=== PATIENT | male | born 1980 ===

== ENCOUNTER 2023-02-06 12:23 | Inpatient (IN) | payer MEDICAID ==
[~2023-02-06] VITALS: Ht 180.3 cm; Wt 108.9 kg
[2023-02-06] MEDS ORDERED: HALOPERIDOL LACTATE 5 MG/ML VIAL IM ONE (12:45)
[2023-02-06] MEDS ORDERED: DiphenhydrAMINE HCL 50 MG/ML VIAL IM ONE (12:45)
[2023-02-06] MEDS ORDERED: LORazepam 2 MG/ML VIAL IM ONE (12:45)
[2023-02-06 12:55] LABS: BASOPHILS % (AUTO) 0.9 % (0.0-2.0); EOSINOPHILS % (AUTO) 0.2 % (1.0-6.0); HEMATOCRIT 46.4 % (41-53); HEMOGLOBIN 15.7 g/dL (13.5-17.5); LYMPHOCYTES # (AUTO) 2.4 K/uL (1.0-4.8); LYMPHOCYTES % (AUTO) 35.5 % (22.0-44.0); MEAN CORPUSCULAR HGB CONC 33.9 G/dL (31.0-37.0); MEAN CORPUSCULAR VOLUME 91 fL (80-100); MONOCYTES # (AUTO) 0.5 K/uL (0.1-1.0); MONOCYTES % (AUTO) 7.4 % (2.0-9.0); NEUTROPHILS # (AUTO) 3.8 K/uL (1.8-7.7); PLATELET COUNT (AUTO) 314 K/uL (150-450); RED BLOOD CELL COUNT(AUTO) 5.08 MIL/uL (4.50-5.90); WHITE BLOOD COUNT (AUTO) 6.8 K/uL (4.5-11.0)
[2023-02-06 13:06] LABS: ANION GAP 10 mmol/L (8-16); CALCIUM, TOTAL 8.8 mg/dL (8.8-10.5); CARBON DIOXIDE 25 mmol/L (22-29); CHLORIDE 107 mmol/L (98-107); CREATININE 0.77 mg/dL (0.60-1.30); GLOMERULAR FILTR. RATE CALC > 60 mL/min (>60); GLUCOSE,RANDOM 134 mg/dL (70-110); POTASSIUM 3.6 mmol/L (3.5-5.1); SODIUM SERUM 142 mmol/L (136-145); UREA NITROGEN, BLOOD 5 mg/dL (7-18)
[2023-02-06 13:12] LABS: ALANINE AMINOTRANSFERASE 38 U/L (12-78); ALKALINE PHOSPHATASE 103 U/L (46-116); ASPARTATE AMINOTRANSFERASE 37 U/L (15-37); BILIRUBIN,TOTAL 0.3 mg/dL (0.1-1.0); TOTAL PROTEIN, SERUM 7.7 g/dL (6.4-8.2)
[2023-02-06 13:31] LABS: ALCOHOL, BLOOD (SERUM) 350 mg/dL (0-10)
[2023-02-06 13:52] LABS: AMPHET/METH SCREEN,URINE NEGATIVE (NEGATIVE); BARBITURATE SCREEN, URINE NEGATIVE (NEGATIVE); BENZODIAZEPINES SCREEN,URINE NEGATIVE (NEGATIVE); CANNABINOID SCREEN,URINE NEGATIVE (NEGATIVE); COCAINE SCREEN,URINE NEGATIVE (NEGATIVE); METHADONE SCREEN, URINE NEGATIVE (NEGATIVE); OPIATE SCREEN,URINE NEGATIVE (NEGATIVE); PHENCYCLIDINE SCREEN,URINE NEGATIVE (NEGATIVE)
[2023-02-06 13:53] LABS: ALCOHOL, URINE DRUG SCREEN POSITIVE (NEGATIVE)
[2023-02-06 18:21] LABS: COVID AG,FIA SOURCE NASAL SWAB
[2023-02-06 19:08] LABS: SARS-COV2 (COVID) ANTIGEN,FIA Negative (Negative)
[2023-02-06] MEDS: HALOPERIDOL 5 MG TABLET PO PRN (19:56)
[2023-02-06] MEDS: ZOLPIDEM TARTRATE 10 MG TABLET PO PRN (19:56)
[2023-02-06] MEDS: LORazepam 2 MG TABLET PO PRN (19:56)
[2023-02-07] VITALS (15 sets, daily range): BP systolic 120–151; BP diastolic 67–91; PULSE 79–103; RESP 16–18; TEMP 97.2–98.5; O2SAT 95–98
[2023-02-07] MEDS: HALOPERIDOL 5 MG TABLET PO PRN ×3 (02:45→13:22)
[2023-02-07] MEDS: LORazepam 2 MG TABLET PO PRN ×5 (02:45→19:42)
[2023-02-07] MEDS ORDERED: ALBUTEROL SULFATE HFA 90 MCG/PUFF 8 GM INHALER IH PRN (07:00)
[2023-02-07] MEDS ORDERED: CloNIDine HCL 0.1 MG TABLET PO PRN (07:00)
[2023-02-07] MEDS ORDERED: LOPERAMIDE HCL 2 MG CAPSULE PO PRN (07:00)
[2023-02-07] MEDS ORDERED: NICOTINE 14 MG/24 HOUR PATCH TD PRN (07:00)
[2023-02-07] MEDS ORDERED: GuaiFENesin/D-METHORPHAN [SUGAR-FREE] 200-20MG/10 ML SYRUP UDCUP PO PRN (07:00)
[2023-02-07] MEDS ORDERED: DOCUSATE SODIUM 100 MG CAPSULE PO PRN (07:00)
[2023-02-07] MEDS ORDERED: MAG HYDROX/ALUMINUM HYD/SIMETH ES 30 ML SUSPENSION UDCUP PO PRN (07:00)
[2023-02-07] MEDS ORDERED: ONDANSETRON HCL 4 MG TABLET PO PRN (07:00)
[2023-02-07] MEDS ORDERED: ACETAMINOPHEN 325 MG TABLET PO PRN (07:00)
[2023-02-07] MEDS ORDERED: PETROLATUM,WHITE 28 GM JELLY TP PRN (07:00)
[2023-02-07] MEDS ORDERED: IBUPROFEN 400 MG TABLET PO PRN (07:00)
[2023-02-07] MEDS ORDERED: MAGNESIUM HYDROXIDE SUSPENSION 30 ML UDCUP PO PRN (07:00)
[2023-02-07] MEDS ORDERED: CYANOCOBALAMIN 1,000 MCG/ML VIAL IM ONE (10:00)
[2023-02-07] MEDS ORDERED: HydrOXYzine PAMOATE 50 MG CAPSULE PO PRN (10:00)
[2023-02-07] MEDS: THIAMINE 100 MG TABLET PO SCH ×2 (10:31→17:13)
[2023-02-07] MEDS: FOLIC ACID 1 MG TABLET PO SCH (10:31)
[2023-02-07] MEDS: MULTIVITAMINS WITH MINERALS, THERAPEUTIC TABLET PO SCH (10:31)
[2023-02-07] MEDS: SERTRALINE HCL 50 MG TABLET PO SCH (10:31)
[2023-02-07] MEDS: ZOLPIDEM TARTRATE 10 MG TABLET PO PRN (20:21)
[2023-02-08] MEDS: LORazepam 2 MG TABLET PO PRN (04:24)
[2023-02-08] MEDS ORDERED: LORazepam 2 MG TABLET PO PRN (07:00)
[2023-02-08] MEDS: SERTRALINE HCL 50 MG TABLET PO SCH (08:01)
[2023-02-08] MEDS: MULTIVITAMINS WITH MINERALS, THERAPEUTIC TABLET PO SCH (08:01)
[2023-02-08] MEDS: THIAMINE 100 MG TABLET PO SCH ×2 (08:01→17:13)
[2023-02-08] MEDS: FOLIC ACID 1 MG TABLET PO SCH (08:01)
[2023-02-08] MEDS: LORazepam 2 MG TABLET PO SCH ×4 (08:01→21:14)
[2023-02-08 08:07] LABS: HEMOGLOBIN A1C 5.1 % (3.8-5.6)
[2023-02-08 08:17] LABS: CHOL/HDL RATIO 2.1 (4.2-7.3); THYROID STIMULATING HORMONE 0.97 uIU/mL (0.36-3.74)
[2023-02-08 09:15] VITALS: BP 142/95; PULSE 96; RESP 18; TEMP 97.7; O2SAT 96
[2023-02-08] MEDS: HALOPERIDOL 5 MG TABLET PO PRN ×2 (17:13→21:13)
[2023-02-08 20:35] VITALS: BP 136/65; PULSE 76; RESP 18; TEMP 98.1; O2SAT 98
[2023-02-08 20:36] VITALS: BP 136/65; PULSE 78; RESP 18; TEMP 98.1; O2SAT 98
[2023-02-08] MEDS: ZOLPIDEM TARTRATE 10 MG TABLET PO PRN (21:14)
[2023-02-09 08:24] VITALS: BP 134/86; PULSE 84; RESP 18; TEMP 98.7; O2SAT 98
[2023-02-09] MEDS: FOLIC ACID 1 MG TABLET PO SCH (08:48)
[2023-02-09] MEDS: MULTIVITAMINS WITH MINERALS, THERAPEUTIC TABLET PO SCH (08:48)
[2023-02-09] MEDS: THIAMINE 100 MG TABLET PO SCH (08:48)
[2023-02-09] MEDS: SERTRALINE HCL 50 MG TABLET PO SCH (08:48)
[2023-02-09] MEDS: LORazepam 2 MG TABLET PO SCH (08:49)
[2023-02-09] MEDS ORDERED: SERT-439 PO (09:28)
[2023-02-09] MEDS ORDERED: DISU250T8 PO (09:28)
[2023-02-10] MEDS ORDERED: LORazepam 1 MG TABLET PO PRN (07:00)
[2023-02-10] MEDS ORDERED: LORazepam 1 MG TABLET PO SCH (09:00)
[2023-02-11] MEDS ORDERED: LORazepam 1 MG TABLET PO PRN (07:00)
== END 2023-02-09 13:10 | disposition home or self-care (01) | DRG 751 ==
LOC: EMS 12:26 → B3A 21:34
PROVIDERS: ADMIT Psychiatry & Neurology Psychiatry; ATTEND Psychiatry & Neurology Psychiatry
PROC: GZHZZZZ Group Psychotherapy (ICD-10-PCS; principal; 2023-02-08)
DX: F33.2 Major depressive disorder, recurrent severe without psychotic features (principal); R45.851 Suicidal ideations; G47.00 Insomnia, unspecified; F10.90 Alcohol use, unspecified, uncomplicated; R03.0 Elevated blood-pressure reading, without diagnosis of hypertension; Z20.822 Contact with and (suspected) exposure to COVID-19; S00.81XA Abrasion of other part of head, initial encounter; X58.XXXA Exposure to other specified factors, initial encounter; Y93.89 Activity, other specified; Y92.89 Other specified places as the place of occurrence of the external cause; Y99.8 Other external cause status; Z65.3 Problems related to other legal circumstances; Z79.899 Other long term (current) drug therapy
CPT/HCPCS: 70450; 80053; 80061; 80307; 83036; 84443; 85025; 99285; G0480; J1200; J1630; J2060; J3420